=== PATIENT | female | born 1970 | race Caucasian/White ===

== ENCOUNTER → 2017-05-26 | Outpatient (CLI) | payer OTHER | LOC: LAB SHORT 07:25 → LAB 07:25 | DX: N93.8 Other specified abnormal uterine and vaginal bleeding (principal) | CPT/HCPCS: 88305 ==

== ENCOUNTER → 2020-10-30 | Outpatient (CLI) | payer OTHER | END | disposition home or self-care (01) | LOC: LAB SHORT 07:55 | DX: N93.8 Other specified abnormal uterine and vaginal bleeding (principal) | CPT/HCPCS: 88305 ==

== ENCOUNTER → 2021-02-04 | Outpatient (CLI) | payer OTHER ==
[2021-02-05 12:10] LABS: HPV 16 Negative (Negative); HPV 18 Negative (Negative); HPV OTHER HR TYPES Positive (Negative)
== END ==
LOC: LAB 15:42 → LAB SHORT 15:42
PROVIDERS: Obstetrics & Gynecology
DX: Z12.4 Encounter for screening for malignant neoplasm of cervix (principal)
CPT/HCPCS: 87624; 87625; G0123

== ENCOUNTER 2021-05-22 07:30 | Inpatient (IN) | payer OTHER ==
[~2021-05-22] VITALS: Ht 172.7 cm; Wt 141.0 kg
[2021-05-27] MEDS ORDERED: IRON PO (11:16)
[2021-05-27] MEDS ORDERED: METF500 PO (11:16)
[2021-05-27] MEDS ORDERED: PANT40 PO (11:17)
[2021-05-27] MEDS ORDERED: TENORMIN50 MG PO (11:17)
[2021-05-27] MEDS ORDERED: LOSA50 PO (11:17)
[2021-05-27] MEDS ORDERED: ESCI10 PO (11:17)
--- NOTE | 2021-06-26 07:00 | NUR ---
Ambulatory in Day Surgery. History, Chart, Medications and Allergies reviewed before start of procedure. Lungs clear T/O to Auscultation. Patient confirms NPO status and agrees with scheduled surgery. Pre-Op teaching done. Pt verbalizes understanding. VERY NICE & COOPERATIVE PT.
--- NOTE | 2021-06-26 14:56 | NUR ---
Patient arrive to room 205 at ll30 today from PACU. Drowsy but oriented x 4. Denies pain but reports "a strange pressure in her abdomen". Reassurance given, drsg. clean dry and intact, ike pad in place clean and dry. Arthur to gravity draining clear yellow urine. Did c/o "slight" nausea, no emesis. Zofran given. IVF infusing. Water at bedside. Patient dozing at this time with no further complaints.
--- NOTE | 2021-06-27 03:40 | NUR ---
PT IS ALERT AND ORIENTED X4. LUNGS ARE CLEAR. BOWELS ARE HYPO ACTIVE. PASSED GAS. INCISION IS COVERED WITH DERSSING; SMALL SHADOW OF DRAINAGE. JARQUIN IN PLACE AND WILL BE REMOVED SOON. LITTLE DISCOMFORT TO THE ABDOMEN INCISION SITE. VSS WITH THE EXCEPTION OF SBP 174/70; WAS CALLED AND ORDERED LABETALOL ONE TIME. WILL CONTINUE TO MONITOR
[2021-06-27 04:20] LABS: BASOPHILS ABSOLUTE AUTO 0.03 K/mm3 (0.00-0.23); BASOPHILS PERCENT AUTO 0 % (0-2); EOSINOPHILS ABSOLUTE AUTO 0.04 K/mm3 (0.00-0.68); EOSINOPHILS PERCENT AUTO 0 % (0-6); Hematocrit 37.4 % (33.0-51.0); Hemoglobin 12.1 g/dL (11.5-16.0); IMMATURE GRAN ABSOLUTE AUTO 0.05 K/mm3 (0.00-0.10); IMMATURE GRAN PERCENT AUTO 0 % (0-1); LYMPHOCYTES ABSOLUTE AUTO 1.58 K/mm3 (0.84-5.20); LYMPHOCYTES PERCENT AUTO 13 % (21-46); MONOCYTES ABSOLUTE AUTO 0.83 K/mm3 (0.16-1.47); MONOCYTES PERCENT AUTO 7 % (4-13); Mean Corpuscular HGB 28.3 pg (26.0-34.0); Mean Corpuscular HGB Conc 32.4 g/dL (31.5-36.5); Mean Corpuscular Volume 88 fL (80-100); Mean Platelet Volume 9.3 fL (9.1-12.4); NEUTROPHILS ABSOLUTE AUTO 9.66 K/mm3 (1.96-9.15); NEUTROPHILS PERCENT AUTO 79 % (41-73); Platelet Count 278 K/mm3 (150-400); RDW Coefficient Variation 13.2 % (11.7-14.2); RDW Standard Deviation 42.5 fL (35.1-46.3); Red Blood Cell Count 4.27 M/mm3 (3.80-5.20); White Blood Cell Count 12.19 K/mm3 (4.00-11.30)
--- NOTE | 2021-06-27 06:03 | NUR ---
BLOOD PRESSURE IMPROVED AFTER MED GIVEN. JARQUIN IS OUT. 900 ML CLEAR YELLOW URINE. PT AMBULATED THIS MORNING AND DID WELL WITHOUT DIZZYNESS OR LIGHT HEADED.
[2021-06-27] MEDS ORDERED: Percocet 5-3251 EACH PO (14:03)
[2021-06-27] MEDS ORDERED: MOTRIN IB200 MG PO (14:04)
--- NOTE | 2021-06-27 15:51 | NUR ---
DISCHARGE SUMMARY PT POD #1 FOR ABD HYSTER. PAIN IS TOLERABLE AT THIS TIME. UP TO THE BATHROOM AND VOIDING. MEDIPORE DRESSING IN PLACE ON ABD AND CDI. WENT OVER DC INSTRUCTIONS WITH PT AND SHE VERBALIZES UNDERSTANDING. PT TO BE PICKED UP BY [facility] AND MEDICATED BEFORE LEAVING.
--- NOTE | 2021-07-01 10:51 | NUR ---
07/01/21 1051 Sarita Parker VERIFICATIONS: EDIT CHART.
== END 2021-06-27 16:39 | disposition home or self-care (01) | DRG 742 ==
LOC: PRE IP 07:30 → SURS 06-26 05:59 → PRE IP 06-26 07:30 → SURS 06-26 11:46
PROVIDERS: ADMIT Obstetrics & Gynecology
PROC: 0UT90ZL Resection of Uterus, Supracervical, Open Approach (ICD-10-PCS; principal; 2021-06-26 07:30)
PROC: 0UB70ZZ Excision of Bilateral Fallopian Tubes, Open Approach (ICD-10-PCS; 2021-06-26 07:30)
DX: N93.8 Other specified abnormal uterine and vaginal bleeding (principal); Z68.42 Body mass index [BMI] 45.0-49.9, adult; D50.0 Iron deficiency anemia secondary to blood loss (chronic); K21.9 Gastro-esophageal reflux disease without esophagitis; E66.9 Obesity, unspecified; E11.9 Type 2 diabetes mellitus without complications; I10 Essential (primary) hypertension; Z90.49 Acquired absence of other specified parts of digestive tract; Z79.84 Long term (current) use of oral hypoglycemic drugs; Z79.899 Other long term (current) drug therapy
CPT/HCPCS: 36415; 82947; 85025; 86850; 86900; 86901; 88307; A9270; J0690; J1885; J2250; J2405; J2704; J3010; J7120